=== PATIENT | female | born 1990 | race Hispanic/Latino ===

== ENCOUNTER 2021-09-21 09:10 | Emergency (ER) | payer OTHER ==
[2021-09-21] MEDS ORDERED: Ibuprofen 800 MG TAB ONE (09:45)
== END 2021-09-21 10:02 | disposition home or self-care (01) ==
LOC: BURERS 09:10
DX: S16.1XXA Strain of muscle, fascia and tendon at neck level, initial encounter (principal); S20.212A Contusion of left front wall of thorax, initial encounter; V43.52XA Car driver injured in collision with other type car in traffic accident, initial encounter
CPT/HCPCS: 99284